=== PATIENT | male | born 1970 | race Native Hawaiian/Other Pacific Islander ===

== ENCOUNTER 2017-11-30 04:04 | Emergency (ER) | payer BC ==
[~2017-11-30] VITALS: Ht 182.9 cm; Wt 111.1 kg
[2017-11-30] MEDS ORDERED: HYDROCHLOROT12.5 M1 PO (04:12)
[2017-11-30] MEDS ORDERED: QBRELIS1 MG/ML PO (04:12)
[2017-11-30] MEDS ORDERED: ULORIC40 MG PO (04:13)
[2017-11-30 04:15] VITALS: BP 145/96; TEMP 99.1
[2017-11-30 04:54] LABS: PLATELET COUNT 220 K/uL (142-355)
[2017-11-30 05:01] LABS: POTASSIUM 3.3 mmol/L (3.6-5.2)
== END 2017-11-30 08:02 | disposition home or self-care (01) ==
LOC: ED 04:04
PROVIDERS: Specialist
DX: M54.89 Other dorsalgia (principal); R10.9 Unspecified abdominal pain
CPT/HCPCS: 80048; 81000; 85027; 96361; 96372; 96374; 96375; 99284; J1170; J1885; J2360; J2405